=== PATIENT | male | born 1995 | race Caucasian/White ===

== ENCOUNTER → 2019-04-22 09:00 | Outpatient (CLI) | payer BC, SELFPAY ==
--- NOTE | ~2019-04-22 | XR_ITS ---
[id number] 04/22/2019 09:23 Indication: Cervicalgia Procedure: 3 view cervical spine Comparison: No prior studies for comparison. Findings: Straightening of cervical lordosis. Vertebral body and disc heights are preserved. No fract ure or traumatic malalignment. Lung apices are normal. Odontoid process is normal. No prevertebral so ft tissue abnormality. Impression: 1: No significant abnormality of the cervical spine. Reviewed, dictated and finalized at location A. Impression: 1: No significant abnormality of the cervical spine.
== END ==
PROVIDERS: PCP Family Medicine; Visit Provider Nurse Practitioner Family
DX: M54.2 Cervicalgia (principal)
CPT/HCPCS: 72040

== ENCOUNTER 2019-06-28 13:34 | Outpatient (CLI) | payer BC, SELFPAY ==
--- NOTE | ~2019-06-28 | MR_ITS ---
EXAMINATION: MR cervical spine wo con DATE: 06/28/2019 14:44 INDICATION: Neck pain. TECHNIQUE: Magnetic resonance imaging (MRI) of the cervical spine was performed without intravenous c ontrast. Sequences included sagittal T2-weighted FSE, sagittal STIR FSE, sagittal T1-weighted FSE, ax ial MERGE, and axial T2-weighted FSE. COMPARISON: Cervical spine radiographs 04/22/2019 FINDINGS: There is mild kyphosis. Vertebral body heights are normal. There is mildly decreased disc h eight at C5-C6. The spinal cord signal intensity is normal. The following disc levels are specificall y discussed: C2-C3: The disc does not extend beyond the endplate margin. There is no uncovertebral joint osteoarth ritis. There is mild bilateral facet joint osteoarthritis. There is no neural foraminal stenosis. The re is no central canal stenosis. C3-C4: The disc does not extend beyond the endplate margin. There is mild bilateral uncovertebral tracey nt osteoarthritis. There is mild left facet joint osteoarthritis. There is mild bilateral neural fora kel stenosis. There is no central canal stenosis. C4-C5: The disc does not extend beyond the endplate margin. There is mild bilateral uncovertebral tracey nt osteoarthritis. There is mild right facet joint osteoarthritis. There is mild bilateral neural for aminal stenosis. There is no central canal stenosis. C5-C6: There is a right subarticular zone extrusion. There is mild bilateral uncovertebral joint oste oarthritis. There is mild bilateral facet joint osteoarthritis. There is mild bilateral neural forami nal stenosis. There is mild central canal stenosis with asymmetry stenosis of right lateral recess. C6-C7: There is a central extrusion. There is mild left uncovertebral joint osteoarthritis. There is mild bilateral facet joint osteoarthritis. There is no neural foraminal stenosis. There is mild centr al canal stenosis. C7-T1: The disc does not extend beyond the endplate margin. There is no uncovertebral joint osteoarth ritis. There is mild bilateral facet joint osteoarthritis. There is mild left neural foraminal stenos is. There is no central canal stenosis. IMPRESSION: 1. Mild cervical spondylosis, worst at C5-C6. Reviewed, dictated and finalized at location E.
== END 2019-06-28 13:35 | disposition home or self-care (01) ==
PROVIDERS: PCP Family Medicine; Visit Provider Nurse Practitioner Family
DX: M54.2 Cervicalgia (principal); M47.892 Other spondylosis, cervical region
CPT/HCPCS: 72141

== ENCOUNTER 2019-10-29 19:51 | Emergency (ER) | payer BC, SELFPAY ==
[2019-10-29 19:52] VITALS: BP 141/78; PULSE 83; RESP 16; TEMP 36.1; O2SAT 100
--- NOTE | 2019-10-29 20:05 | PC.NURSE ---
pt presents to ER with c/o lac to L palm. wound cleaned and dressed at this time. pt states he is not up to date on his tetanus. +PMS.
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
[2019-10-29] MEDS: TETANUS,DIPHTHERIA,AC PERTUSSIS ADULT (0.5 ML) BOOSTRIX IM (21:01)
[2019-10-29 21:06] VITALS: BP 122/83; PULSE 77; RESP 17; O2SAT 100
== END 2019-10-29 21:07 | disposition home or self-care (01) ==
PROVIDERS: Emergency Provider Emergency Medicine; PCP Family Medicine
DX: S61.412A Laceration without foreign body of left hand, initial encounter (principal); W26.0XXA Contact with knife, initial encounter; Z23 Encounter for immunization
CPT/HCPCS: 12001; 90471; 90715; 99282

== ENCOUNTER 2021-07-24 10:01 | Emergency (ER) | payer OTHER, SELFPAY ==
[2021-07-24 10:17] VITALS: BP 138/89; PULSE 89; RESP 16; TEMP 36.4; O2SAT 98
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
== END 2021-07-24 11:35 | disposition home or self-care (01) ==
PROVIDERS: Emergency Provider Nurse Practitioner Family; PCP Family Medicine
DX: B02.9 Zoster without complications (principal)
CPT/HCPCS: 99213; G0463

== ENCOUNTER 2022-06-02 14:31 | Emergency (ER) | payer OTHER, SELFPAY ==
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
[2022-06-02 14:39] VITALS: BP 144/114; PULSE 69; RESP 16; TEMP 36.4; O2SAT 99
== END 2022-06-02 15:21 | disposition home or self-care (01) ==
PROVIDERS: Emergency Provider Nurse Practitioner Family; PCP Registered Nurse
DX: M54.2 Cervicalgia (principal)
CPT/HCPCS: 99213; G0463